=== PATIENT | male | born 1990 | race Caucasian/White ===

== ENCOUNTER 2018-02-24 21:10 | Emergency (ER) | payer SELFPAY ==
[~2018-02-24] VITALS: Ht 170.2 cm; Wt 73.0 kg
[2018-02-24] MEDS ORDERED: SODIUM CHLORIDE 0.9% 1,000 ML IV ONE (21:36)
[2018-02-24] MEDS ORDERED: NALOXONE HCL 1 MG/ML 2ML VIAL IV ONE (21:45)
[2018-02-24 22:05] LABS: BASOPHILS % 0.4 % (0.0-2.0); EOSINOPHILS % 2.3 % (0.0-5.0); HEMATOCRIT. 44.6 % (42.0-52.0); MEAN CORPUSCULAR HEMOGLOBIN 31.2 pg (28.0-32.0); MEAN PLATELET VOLUME 9.8 fl (7.4-10.4); MONOCYTES % 7.7 % (2.0-8.0); NEUTROPHILS % 35.6 % (40.0-76.0); PLATELET 254 x1000/uL (130-400); RED CELL DISTRIBUTION WIDTH 12.7 % (11.6-14.6)
[2018-02-24 22:10] LABS: CHLORIDE 104 mEq/L (98-107)
[2018-02-24 22:14] LABS: ETHANOL BLOOD < 10 mg/dL
[2018-02-24] MEDS ORDERED: POTASSIUM CHLORIDE 20MEQ TABLET SR PO ONE (23:30)
[2018-02-25] VITALS: BP 128/72
== END 2018-02-25 | disposition home or self-care (01) ==
LOC: ER 21:10
DX: T50.905A Adverse effect of unspecified drugs, medicaments and biological substances, initial encounter (principal); D72.829 Elevated white blood cell count, unspecified; R73.9 Hyperglycemia, unspecified; E87.6 Hypokalemia; Y92.89 Other specified places as the place of occurrence of the external cause
CPT/HCPCS: 36415; 71045; 80053; 85025; 93005; 96374; 99285; G0482; J7030